=== PATIENT | female | born 2000 | race Caucasian/White ===

== ENCOUNTER 2020-07-28 21:56 | Emergency (ER) | payer BC ==
[~2020-07-28] VITALS: Ht 160 cm; Wt 63.6 kg
[2020-07-28 21:56] VITALS: BP 135/92
--- NOTE | 2020-07-28 22:22 | PHYS DOC ---
Past History Past Medical History: No Pertinent History Past Surgical History: Other Additional Past Surgical Histo: WISDOM TEETH Alcohol Use: None Adult General Chief Complaint Chief Complaint: FOREIGN BODY VAGINA HPI HPI Patient is a 20-year-old female who presents with a chief complaint of concern for vaginal foreign body. States she placed a tampon yesterday as she is on her menstrual cycle. 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 States she tried to remove it and/or searched for but could not find it and was scared that it was stuck and she would not be able to get it out. Denies any fevers, chest pain, shortness of breath, abdominal pain, nausea, vomiting, dysuria. Denies any vaginal pain or pressure. States she still is on her menstrual cycle but it is actually coming to the and it is getting parish visitor. Review of Systems Review of Systems Review of systems otherwise unremarkable except noted in HPI Allergies Allergies Allergies Coded Allergies Type Severity Reaction Last Updated Verified No Known Drug Allergies 07/28/20 No Physical Exam Physical Exam Constitutional: Well developed, well nourished, no acute distress, non-toxic appearance. [] Cardiovascular:Heart rate regular rhythm, no murmur [] Lungs & Thorax: Bilateral breath sounds clear to auscultation [] Abdomen: Bowel sounds normal, soft, no tenderness, no masses, no pulsatile masses. . No outward vaginal or labial tenderness or damage. Small amount of bright red blood around vaginal opening. Digital exam with no tenderness, no extra bleeding, no foreign body appreciated. No cervical tenderness. [] Skin: Warm, dry, no erythema, no rash. [] Back: no CVA tenderness. [] Neurologic: Alert and oriented X 3, normal motor function, normal sensory function, no focal deficits noted. [] Psychologic: Affect normal, judgement normal, mood normal. [] Current Patient Data Vital Signs Vital Signs Date Time Temp Pulse Resp B/P (MAP) Pulse Ox O2 Delivery O2 Flow Rate FiO2 07/28/20 21:56 98.4 87 16 135/92 (106) 98 Room Air EKG EKG [] Radiology/Procedures Radiology/Procedures [] Heart Score C/O Chest Pain: No Risk Factors: Risk Factors: DM, Current or recent (<one month) smoker, HTN, HLP, family history of CAD, obesity. Risk Scores: Risk Factors: DM, Current or recent (<one month) smoker, HTN, HLP, family history of CAD, obesity. Course & Med Decision Making Course & Med Decision Making Patient is a 20-year-old female who presents with concern for vaginal foreign body/tampon Vital signs not concerning. Physical exam noted above. Pelvic exam negative fo r tampon or any other tenderness or damage. Discussed all findings with patient who was very relieved and thankful. Advised to follow-up with primary care as needed. Gave strict return precautions to the ED. Patient grateful, verbalized understanding and agreed with plan of discharge. [] Dragon Disclaimer Dragon Disclaimer This electronic medical record was generated, in whole or in part, using a voice recognition dictation system. Departure Departure: Impression: Primary Impression: Vaginal foreign body Disposition: HOME / SELF CARE / HOMELESS Condition: GOOD Referrals: NON,STAFF (PCP) JOVANA CAMACHO MD Patient Instructions: Vaginal Foreign Body, [id number], Vaginal Foreign Body- Brief Additional Instructions: Please read all the attached information very carefully to understand vaginal foreign bodies and possible complications. Please call your primary care physician first thing in the morning to update on your ED visit and set up a follow-up as soon as you can. Please come back to the emergency department immediately with new or concerning symptoms as discussed. ERYN BOUDREAUX MD July 28, 2020 22:22
== END 2020-07-28 22:38 | disposition home or self-care (01) ==
LOC: ER 21:56
DX: T19.2XXA Foreign body in vulva and vagina, initial encounter (principal); W20.8XXA Other cause of strike by thrown, projected or falling object, initial encounter; Y93.89 Activity, other specified; Y92.89 Other specified places as the place of occurrence of the external cause; Y99.8 Other external cause status
CPT/HCPCS: 99284-25